=== PATIENT | male | born 1935 | race Native Hawaiian/Other Pacific Islander ===

== ENCOUNTER 2017-02-15 23:26 | Emergency (ER) | payer OTHER ==
[~2017-02-15] VITALS: Ht 170.2 cm; Wt 65.8 kg
[2017-02-16 00:22] LABS: PLATELET COUNT 105 K/uL (142-355)
[2017-02-16 00:29] LABS: POTASSIUM 4.2 mmol/L (3.6-5.2)
[2017-02-16 01:42] VITALS: BP 162/85; TEMP 98.9
== END 2017-02-16 01:43 | disposition home or self-care (01) ==
LOC: ED 23:26
PROVIDERS: Family Medicine
DX: S22.32XA Fracture of one rib, left side, initial encounter for closed fracture (principal); S20.212A Contusion of left front wall of thorax, initial encounter; T20.15XA Burn of first degree of scalp [any part], initial encounter; T31.0 Burns involving less than 10% of body surface; X08.8XXA Exposure to other specified smoke, fire and flames, initial encounter; W18.2XXA Fall in (into) shower or empty bathtub, initial encounter; Y92.098 Other place in other non-institutional residence as the place of occurrence of the external cause
CPT/HCPCS: 36415; 80053; 81000; 85027; 93005; 96372; 99283; J1885

== ENCOUNTER 2017-03-31 18:43 | Emergency (ER) | payer OTHER ==
[~2017-03-31] VITALS: Ht 170.2 cm; Wt 63.5 kg
[2017-03-31 19:00] VITALS: TEMP 98.4
[2017-03-31] MEDS ORDERED: LABETALOL100 MG OR (19:01)
[2017-03-31] MEDS ORDERED: LIPITOR40 MG PO (19:01)
[2017-03-31] MEDS ORDERED: TAMS0.4C PO (19:01)
[2017-03-31] MEDS ORDERED: ROPINIROLE2 MG OR (19:02)
[2017-03-31] MEDS ORDERED: GABA300C2 PO (19:03)
[2017-03-31] MEDS ORDERED: CYCL10TA35 PO (19:04)
[2017-03-31] MEDS ORDERED: METFORMIN HYDR850 MG PO (19:04)
[2017-03-31 19:49] LABS: PLATELET COUNT 171 K/uL (142-355)
[2017-03-31 19:55] LABS: POTASSIUM 3.8 mmol/L (3.6-5.2); SODIUM 141 mmol/L (136-145)
[2017-03-31 21:03] VITALS: BP 145/79
== END 2017-03-31 21:09 | disposition home or self-care (01) ==
LOC: ED 18:43
PROVIDERS: Specialist
DX: I10 Essential (primary) hypertension (principal)
CPT/HCPCS: 36415; 80053; 81000; 83735; 84100; 84484; 85027; 99283

== ENCOUNTER 2017-07-24 03:42 | Observation (INO) | payer OTHER ==
[2017-07-24] VITALS (25 sets, daily range): BP systolic 84–175; BP diastolic 48–97; TEMP 97.6–98.8; Ht 170.2 cm; Wt 64.9 kg
[~2017-07-24] VITALS: Ht 170.2 cm; Wt 64.9 kg
[~2017-07-24 03:42] MED LIST: CYCL10TA35 PO; GABA300C2 PO; LABETALOL100 MG OR; LIPITOR40 MG PO; METFORMIN HYDR850 MG PO; ROPINIROLE2 MG OR; TAMS0.4C PO
[2017-07-24] MEDS ORDERED: HYDROCHLOROT12.5 M1 PO (04:38)
[2017-07-24] MEDS ORDERED: TAMS0.4C PO (04:38)
[2017-07-24 04:39] LABS: PLATELET COUNT 147 K/uL (142-355)
[2017-07-24] MEDS ORDERED: LISI20TA11 PO (04:39)
[2017-07-24] MEDS ORDERED: LIPITOR40 MG PO (04:43)
--- NOTE | 2017-07-24 09:00 | NUR ---
ADMITTED 82 YEAR OLD MALE TO PCU1 VIA STRETCHER FROM ER ADMITTED TO DR BOWERS SERVICES DX. NEW ONSET A FIB, DM, HTN. PATIENT ALERT ORIENTED TO ROOM. FAMILY MEMBERS AT BEDSIDE. PT ASSESSEMENT BEGAN . PT PLACED ON MONITOR NOTED SR 65-70. DENIES CHEST PAINS.
--- NOTE | 2017-07-24 12:28 | NUR ---
LUNCH TRAY SET UP. FAMILY AT BEDSIDE.
--- NOTE | 2017-07-24 15:47 | NUR ---
RESTING IN BED HOB UP WATCHING TV NO COMPLAINTS MONITOR SHOWING SINUS HR 69. NO A FIB. PT STATES FEELING "OK" RECIEVED PO MEDS ORDERED.
[2017-07-25] VITALS (10 sets, daily range): BP systolic 139–188; BP diastolic 71–102; TEMP 97.6–98.8
[2017-07-25 06:09] LABS: POTASSIUM 3.9 mmol/L (3.6-5.2)
[2017-07-25 06:23] LABS: PLATELET COUNT 137 K/uL (142-355)
--- NOTE | 2017-07-25 09:00 | NUR ---
REPORT GIVEN TO MADELINE VO RN. PATIENT TRANSFERED TO 1117.
--- NOTE | 2017-07-25 13:51 | NUR ---
0900 REC'D PT FROM PCU VIA WC. PT ASSISTED TO ROOM 1117 AND ASSISTED TO BED. PT AWAKE AND ALERT. NO ACUTE DISTRESS NOTED. PT DENIES ANY CO AT THIS TIME. HR REG AND WNL. WILL CON'T TO MONIOTR
[2017-07-26] VITALS: BP 137/91; TEMP 98.8
[2017-07-26 04:00] VITALS: BP 123/78; TEMP 97.7
[2017-07-26 06:30] LABS: PLATELET COUNT 129 K/uL (142-355)
[2017-07-26 06:39] LABS: POTASSIUM 3.7 mmol/L (3.6-5.2)
[2017-07-26 08:00] VITALS: BP 112/86; TEMP 98.1
[2017-07-26 12:00] VITALS: BP 138/76; TEMP 98.1
[2017-07-26 16:00] VITALS: BP 123/72; TEMP 98.5
[2017-07-26] MEDS ORDERED: CARDIZEM LA360 MG PO (16:41)
--- NOTE | 2017-07-26 17:00 | NUR ---
IV D/C'D WITH TIP INTACT PRESSURE DRESSING APPLIED. D/C INSTRUCTIONS GIVEN. PT AND FAMILY VERBALIZED UNDERSTANDING.
== END 2017-07-26 17:20 | disposition home or self-care (01) ==
LOC: ED 03:42 → ICU 07:44 → MED/SURG 07-25 09:00
PROVIDERS: Specialist
DX: I48.0 Paroxysmal atrial fibrillation (principal); I10 Essential (primary) hypertension; E11.9 Type 2 diabetes mellitus without complications
CPT/HCPCS: 36415; 80053; 81000; 82550; 82553; 82948; 82962; 83735; 84100; 84484; 85027; 85379; 85610; 93005; 96365; 96372; 96375; 99220; 99284; G0378; J1644; J3490

== ENCOUNTER 2018-04-19 13:23 | Observation (INO) | payer OTHER ==
[~2018-04-19] VITALS: Ht 165.1 cm; Wt 61.9 kg
[~2018-04-19 13:23] MED LIST changes: +CARDIZEM LA360 MG PO; +HYDROCHLOROT12.5 M1 PO; +LISI20TA11 PO
[2018-04-19 13:28] VITALS: BP 177/75; TEMP 98
[2018-04-19 14:42] LABS: PLATELET COUNT 141 K/uL (142-355)
[2018-04-19 14:52] LABS: POTASSIUM 4.4 mmol/L (3.6-5.2)
[2018-04-19 15:02] LABS: PARTIAL THROMBOPLASTIN TIME 24.7 SECONDS (24.5-33.6)
[2018-04-20 01:35] VITALS: BP 194/84; TEMP 97.7; Ht 165.1 cm; Wt 61.9 kg
[2018-04-20 04:36] VITALS: BP 169/75; TEMP 97.7
[2018-04-20 08:00] VITALS: BP 203/77; TEMP 97.7
[2018-04-20 12:00] VITALS: BP 197/95; TEMP 98
[2018-04-20 16:00] VITALS: BP 160/71; TEMP 97.9
[2018-04-20 20:40] VITALS: BP 173/74; TEMP 98.7
[2018-04-21] VITALS: BP 197/79; TEMP 97.9
[2018-04-21 04:00] VITALS: BP 156/73; TEMP 97.8
[2018-04-21 05:57] LABS: PLATELET COUNT 120 K/uL (142-355)
[2018-04-21 06:23] LABS: POTASSIUM 3.1 mmol/L (3.6-5.2)
[2018-04-21 08:00] VITALS: BP 176/75; TEMP 97.6
[2018-04-21 12:00] VITALS: BP 151/77; TEMP 98.6
[2018-04-21] MEDS ORDERED: COATED ASPIRIN325 MG PO (14:25)
[2018-04-21] MEDS ORDERED: CLOP75TA2 PO (14:26)
== END 2018-04-21 16:10 | disposition home or self-care (01) ==
LOC: ED 13:23 → MED/SURG 17:15
PROVIDERS: ADMIT Family Medicine
DX: G45.8 Other transient cerebral ischemic attacks and related syndromes (principal); R53.1 Weakness; I10 Essential (primary) hypertension; I48.91 Unspecified atrial fibrillation; Z91.81 History of falling; E11.9 Type 2 diabetes mellitus without complications; R13.12 Dysphagia, oropharyngeal phase
CPT/HCPCS: 36415; 80053; 81000; 85027; 85610; 85730; 93306; 94760; 99220; 99283; G0378; J1650

== ENCOUNTER 2018-05-07 22:08 | Observation (INO) | payer OTHER ==
[~2018-05-07] VITALS: Ht 170.2 cm; Wt 64.6 kg
[~2018-05-07 22:08] MED LIST changes: +CLOP75TA2 PO; +COATED ASPIRIN325 MG PO
[2018-05-07 22:18] VITALS: BP 185/84; TEMP 100.2
[2018-05-07 22:45] LABS: POTASSIUM 3.8 mmol/L (3.6-5.2); SODIUM 139 mmol/L (136-145)
[2018-05-07 22:55] LABS: PLATELET COUNT 140 K/uL (142-355)
[2018-05-07 23:26] VITALS: BP 115/68
[2018-05-08] VITALS (13 sets, daily range): BP systolic 101–165; BP diastolic 56–79; TEMP 101.2–101.4; Ht 170.2 cm; Wt 64.6 kg
[2018-05-08 06:49] LABS: PLATELET COUNT 123 K/uL (142-355)
[2018-05-08 06:59] LABS: POTASSIUM 3.7 mmol/L (3.6-5.2)
[2018-05-09] VITALS: BP 160/66; TEMP 100.8
== END 2018-05-08 21:30 | disposition short-term general hospital (02) ==
LOC: ED 22:08 → MED/SURG 05-08 06:30
PROVIDERS: ADMIT Allergy & Immunology
DX: I63.89 Other cerebral infarction (principal); R29.810 Facial weakness; I48.91 Unspecified atrial fibrillation; I10 Essential (primary) hypertension; E78.49 Other hyperlipidemia; Z86.73 Personal history of transient ischemic attack (TIA), and cerebral infarction without residual deficits; N40.0 Benign prostatic hyperplasia without lower urinary tract symptoms; E11.9 Type 2 diabetes mellitus without complications; K59.09 Other constipation
CPT/HCPCS: 80053; 84484; 85027; 93005; 96360; 96361; 99220; 99284; G0378

== ENCOUNTER 2018-05-07 22:12 | Outpatient (CLI) | payer OTHER | END 2018-05-07 22:15 | disposition short-term general hospital (02) | LOC: AMB 22:12 | DX: R41.82 Altered mental status, unspecified (principal) | CPT/HCPCS: A0425; A0427 ==

== ENCOUNTER 2018-05-08 21:30 | Inpatient (IN) | payer OTHER ==
[~2018-05-08] VITALS: Ht 170.2 cm; Wt 57.4 kg
[2018-05-09 01:38] VITALS: BP 160/66; TEMP 100.8; Ht 170.2 cm; Wt 57.4 kg
[2018-05-10 08:00] VITALS: BP 179/93; TEMP 98.3
[2018-05-10 20:18] VITALS: BP 198/88; TEMP 102
[2018-05-11 08:18] VITALS: BP 169/70; TEMP 98
[2018-05-11 20:00] VITALS: BP 196/88; TEMP 98.2
[2018-05-12 08:20] VITALS: BP 188/91; TEMP 99
[2018-05-12 20:00] VITALS: BP 193/86; TEMP 99.9
[2018-05-13 08:01] VITALS: BP 178/94; TEMP 98.9
== END 2018-05-13 11:15 | disposition home health service (06) | DRG 951 ==
LOC: MED/SURG 21:30
PROVIDERS: ADMIT Family Medicine
DX: Z51.5 Encounter for palliative care (principal)
CPT/HCPCS: J2270